=== PATIENT | female | born 1965 | race Caucasian/White ===

== ENCOUNTER 2019-01-05 05:05 | Observation (INO) | payer OTHER, SELFPAY ==
[2019-01-05] VITALS (11 sets, daily range): BP systolic 148–214; BP diastolic 73–92; PULSE 65–90; RESP 15–28; TEMP 36.6–37; O2SAT 95–99; BMI 45.6; BMI 48.6
--- NOTE | 2019-01-05 05:06 | ED.RN ---
CALLED FOR EKG PER RN REQUEST, NO OLD EKGS IN MUSE
--- NOTE | 2019-01-05 05:08 | RAD_ITS ---
STUDY: X-RAY CHEST REASON FOR EXAM: Female, 53 years old. Shortness of breath. TECHNIQUE: Single AP portable view of the chest. COMPARISON: Prior comparison studies are not available for review at this time. FINDINGS: Cardiac monitoring leads are present. The lungs are expanded. There is mild prominence of the bronchovascular markings. There is no demonstrated pleural abnormality. There is mild cardiac enlargement. Normal mediastinum and emmett. There is prominence of the pulmonary hilar arteries with peripheral pulmonary vascular congestion. There is atherosclerotic calcification of the aortic arch with tortuosity. There is demineralization of the osseous structures. Normal visualized ribs, clavicles, and shoulders. There is no demonstrated abnormality of the visualized soft tissue structures of the upper abdomen. RAD/Chest 1 View (Portable) IMPRESSION: Mild cardiomegaly and pulmonary congestion. Electronically Signed: Lucia Cameron MD at 6:15 EDT , Service support ,
--- NOTE | 2019-01-05 05:09 | EKG12_ITS ---
Test Reason : CP Blood Pressure : / mmHG Vent. Rate : 089 BPM Atrial Rate : 089 BPM P-R Int : 180 ms QRS Dur : 082 ms QT Int : 382 ms P-R-T Axes : 012 000 080 degrees QTc Int : 464 ms Normal sinus rhythm Normal ECG Confirmed by SANIYA GIPSON, DUANE ([id number]), website/blog editor KULWINDER BOSCH ([id number]) on 01/07/2019 11:06:23 AM Referred By: Ramon Eldridge Confirmed By:DUANE KOTHARI MD
[2019-01-05] MEDS: Ipratropium/Albuterol Sulfate 3 ML AMPUL.NEB INHALATION (05:16)
[2019-01-05] MEDS: 0.9% Normal Saline 1,000 ML 15 ML IV (05:26)
[2019-01-05] MEDS: Ondansetron 4 MG/2 ML Vial IV (05:26)
[2019-01-05 05:38] LABS: Absolute Lymphocyte Count 0.61 X10^3/ul (0.83-4.51); Absolute Neutrophil Count 4.2 X10^3/uL (2.0-7.7); Eosinophils% 1.8 % (0-5); Hematocrit 44.2 % (37-47); Hemoglobin 15.3 g/dl (12.0-15.0); Lymphocyte # 0.61 X10^3/ul (4.0); Mean Corp Hgb Conc 34.6 g/gl (32-36); Mean Corpuscular Hgb 30.1 pg (27.0-32.0); Mean Corpuscular Volume 86.8 fL (81-99); Mean Platelet Vol. 9.4 fl (6.2-12.0); Monocyte# 0.59 X10^3/uL; Monocyte% 10.6 % (0-10); Neutrophil # 4.23 X10^3/uL (2.7-7.7); Neutrophil % 76.2 % (47-70); Platelet Count 225 K/mm3 (150-450); RBC Distribution Width CV 12.2 % (11.6-14.6); RBC Distribution Width SD 38.9 fl (35.1-43.9); Red Blood Count 5.09 M/mm3 (4.2-5.4); White Blood Count 5.6 K/mm3 (4.4-11.0)
[2019-01-05 05:46] LABS: POSITIVE COUNT NO; POSITIVE DIFFERENTIAL NO; POSITIVE MORPHOLOGY NO
[2019-01-05 06:15] LABS: Anion Gap 11 (5-15); BUN 11 mg/dL (7-18); BUN/Creat Ratio 12.2 RATIO (10-20); Calcium,Total 8.8 mg/dL (8.5-10.1); Chloride 102 mmol/L (98-107); EST Glomerular Filtration Rate 69 mL/min (>60); Est Glom Filt Rate - Afr Amer 84 mL/min (>60); Estimated Creatinine Clearance 71.25 ml/min; Glucose 176 mg/dL (74-106); Potassium 3.8 mmol/L (3.5-5.1); Sodium Level 136 mmol/L (136-145)
[2019-01-05 08:05] LABS: BNP,B-Type NATRIURETIC PEPTIDE 16.7 pg/mL (0-100)
--- NOTE | 2019-01-05 08:20 | ED.VISSUMM ---
- ER Visit Summary Date of Service: 01/05/19 Chief Complaint: Short of breath, chest pain, vomiting History of Present Illness: The patient is a 53 F with cough, shortness of breath, and back pain for the past 2 weeks. She was seen by her PCP and treated with prednisone, doxycycline without improvement. Patient states her symptoms have continued and tonight she had vomiting. She reports a temperature of 101.7 just prior to arrival. She does report chest congestion but is not bringing up much sputum. She works at the [employer] home with multiple ill residents. Patient does have a history of asthma. Physical Examination: Blood pressure on arrival was 214/90, temperature 98.6, heart rate 88, respiratory rate 28, pulse ox 95% on room air. Patient is sitting upright in bed. She is able to speak full sentences but is tachypneic. Head neck examination is unremarkable. Heart is regular rate and rhythm. Lung sounds are diminished throughout. Abdomen is soft and nontender. Test Results: Portable chest x-ray reveals mild cardiomegaly and pulmonary congestion. EKG is sinus 89 with no acute ischemia. CBC was normal white count hemoglobin 15.3. Chemistry studies significant only for glucose of 176. Troponin is less than 0.015. BNP is 16.7. D-dimer 0.50. Emergency Department Course and Treatment: Patient was given a DuoNeb treatment along with Zofran. Patient did ablate to the bathroom next door to her room. Her O2 sats dropped to 89% without mild ambulation and she was quite tachypneic on return. I initially ordered a CTA of the chest, but patient was only able to get a 22-gauge IV in her arm and this would not give us good imaging results. At this time patient will require admission for further evaluation. If a larger IV can be obtained she may need a CTA chest or a nuclear medicine scan. Treatment Plan: [] Disposition: Admit Impression: Dyspnea This note was generated with [employer] dictation software. It may contain incorrect words, spelling, and punctuation that were not noted in review of the chart prior to signing ED Disposition - Plan for ED Patient: Referrals: Mauricio Fernandez DO [Primary Care Provider] -
--- NOTE | 2019-01-05 08:23 | ED.DCSUM_ITS ---
- ER Visit Summary Date of Service: 01/05/19 Chief Complaint: Short of breath, chest pain, vomiting History of Present Illness: The patient is a 53 F with cough, shortness of breath, and back pain for the past 2 weeks. She was seen by her PCP and treated with prednisone, doxycycline without improvement. Patient states her symptoms have continued and tonight she had vomiting. She reports a temperature of 101.7 just prior to arrival. She does report chest congestion but is not bringing up much sputum. She works at the [employer] home with multiple ill residents. Patient does have a history of asthma. Physical Examination: Blood pressure on arrival was 214/90, temperature 98.6, heart rate 88, respiratory rate 28, pulse ox 95% on room air. Patient is sitting upright in bed. She is able to speak full sentences but is tachypneic. Head neck examination is unremarkable. Heart is regular rate and rhythm. Lung sounds are diminished throughout. Abdomen is soft and nontender. Test Results: Portable chest x-ray reveals mild cardiomegaly and pulmonary congestion. EKG is sinus 89 with no acute ischemia. CBC was normal white count hemoglobin 15.3. Chemistry studies significant only for glucose of 176. Troponin is less than 0.015. BNP is 16.7. D-dimer 0.50. Emergency Department Course and Treatment: Patient was given a DuoNeb treatment along with Zofran. Patient did ablate to the bathroom next door to her room. Her O2 sats dropped to 89% without mild ambulation and she was quite tachypneic on return. I initially ordered a CTA of the chest, but patient was only able to get a 22-gauge IV in her arm and this would not give us good imaging results. At this time patient will require admission for further evaluation. If a larger IV can be obtained she may need a CTA chest or a nuclear medicine scan. Treatment Plan: [] Disposition: Admit Impression: Dyspnea This note was generated with [employer] dictation software. It may contain incorrect words, spelling, and punctuation that were not noted in review of the chart prior to signing ED Disposition - Plan for ED Patient: Referrals: Mauricio Fernandez DO [Primary Care Provider] -
--- NOTE | 2019-01-05 09:57 | HP.PCM_ITS ---
Problem List (1) Type II diabetes mellitus Status: Chronic (2) Morbid obesity with BMI of 45.0-49.9, adult Status: Chronic (3) HTN (hypertension) Status: Chronic Qualifiers: Hypertension type: essential hypertension Qualified Code(s): I10 - Essential (primary) hypertension (4) Asthma Status: Chronic (5) Breast CA Status: Chronic Qualifiers: Patient sex: female Laterality: right Comment: Status post partial mastectomy on the right and chemotherapy (6) History of partial mastectomy of right breast Status: Chronic (7) Elevated d-dimer Status: Acute (8) Nausea and vomiting Status: Acute (9) Cough Status: Acute Comment: for 21 weeks - no better after Prednisone and Doxycycline (10) Chest pain Status: Acute History of Present Illness Date of Admission: 01/05/19 Chief Complaint: N/V x 24 hours and cough with SOB for the past 2 weeks The patient is a 53 year old F with a past medical history of hypertension, depression, asthma and diabetes mellitus type 2 who presented to the emergency department at [facility] on 01/05/2019 complaining of cough with shortness of breath times 2 weeks and nausea/vomiting times 24 hours. She had been seen by her primary care physician for the cough and was placed on prednisone and doxycycline with no improvement. She reported a fever of 101.7 at home prior to arrival in the emergency department. She works at the [employer] home and multiple residents are ill. No signs of presentation to the emergency room were temp 98.6, pulse rate 88, blood pressure 214/90, respiratory rate 28 and she was 95% saturated on room air. White blood cell count was normal at 5.6 with 76% neutrophils. Hemoglobin was 15.3 and platelets were within normal limits. D-dimer was elevated at 0.5. BMP was unremarkable. Random glucose was elevated at 176 and the troponin was less than 0.015. Chest x-ray showed increased pulmonary vascular congestion but the BNP was 16.7. She was observed ambulating to the bathroom by Dr. Zamora and her pulse ox dropped to 88% and she became markedly tachypneic. There is a + FH of VTE in her mother who has an inherited disorder but, Timoteo can not remember what the abnormality is. She is being admitted to a monitored bed on [facility] 2 with a diagnosis of shortness of breath and chest pain of unknown etiology. Past Medical History Past Medical History (Chronic Problems): Chronic Problems Type II diabetes mellitus (Chronic) Morbid obesity with BMI of 45.0-49.9, adult (Chronic) HTN (hypertension) (Chronic) Asthma (Chronic) Breast CA (Chronic) Status post partial mastectomy on the right and chemotherapy History of partial mastectomy of right breast (Chronic) Allergies Sulfa (Sulfonamide Antibiotics) Allergy (Verified 01/05/19 05:09) Anaphylaxis morphine Adverse Reaction (Verified 01/05/19 05:09) Shortness of breath Home Medications: Ambulatory Orders Medication Instructions Recorded Amlodipine [Norvasc] 5 mg PO DAILY 01/05/19 Atenolol [Tenormin (beta shaylee)] 100 mg PO DAILY 01/05/19 Fluoxetine HCl [Prozac] 60 mg PO DAILY 01/05/19 Sitagliptin Phosphate [Januvia] 100 mg PO DAILY 01/05/19 Surgical History: mastectomy - Partial right mastectomy for breast cancer. Transabdominal hysterectomy with oophorectomy x1, the other ovary was left. This was done for dysfunctional uterine bleeding. C sections. 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 The patient tells me that she has an inherited disorder but she does not know the name. The mother also has hypertension Paternal History Items: - - Father with a brain tumor Sibling History Items: - - Her brother has hypertension and her sister has diabetes mellitus. Review of Systems Constitutional: Reports: Chills, Fever, Malaise. Denies: Weight Change Eyes: Denies: Blurred vision HEENT: Reports: Difficulty Hearing, Difficulty Swallowing. Denies: Head Aches, Sinus Congestion, Sinus Drainage, Sore Throat Cardiovascular: Reports: Chest Pain - she has chest pain in the right lateral chest that increases with taking a deep breath, Edema - resolves when she elevates her legs. Denies: Heaviness, Light Headedness, Orthopnea, Palpitations, Paroxysmal Noc. Dyspnea, Syncope Respiratory: Reports: Cough - non-productive mostly for the past 2 weeks, Pleuritic Pain, Shortness of breath at rest, Shortness of breath upon exertion, Wheezing. Denies: Hemoptysis, Sputum production Gastrointestinal: Reports: Nausea, Vomiting. Denies: Abdominal Pain Genitourinary: Reports: Frequency, Urgency. Denies: Dysuria Musculoskeletal: Denies: Joint Pain, Joint Tenderness Skin: Denies: Jaundice, Rash, Wounds Neurological: Denies: Balance problems, Focal weakness, Numbness, Tingling, Seizures Psychiatric: Denies: Anxiety, Depression, Homicidal Ideations, Suicidal Ideations Endocrine: Denies: Hx of Thyroiditis Hematologic/ Lymphatic: Denies: Easy Bruising, Easy Bleeding, Hx of blood clot VTE Information - Inpt Only VTE Present on Admission: No VTE Mechan Device Prophylaxis: SCD's, Knee High IRINA Hose VTE Pharm Prophylaxis ordered?: Yes VTE Suspected: Suspected PE - on the right and also suspect possible DVT RLE Patient Problems: Active and Suspected Problems Elevated d-dimer (Acute) Nausea and vomiting (Acute) Cough (Acute) for 21 weeks - no better after Prednisone and Doxycycline Chest pain (Acute) - Physical Exam General: Alert, Oriented x3, Cooperative, Well developed, Well nourished HEENT: Atraumatic, PERRLA, EOMI, Normocephalic Oral: No Gingival or Mucosal Lesions/ Ulcerations, Dry Mucosa Neck: Supple, No JVD, Negative Carotid Bruits, No Nodes, No Nuchal Rigidity, Trachea Midline, - - Crowded to have brisk upstroke and excellent pulse volume bilaterally Lungs: Clear to auscultation, Normal air movement, No rhonchi, No wheeze, No rales, Tachypneic, - - She is tachypneic even at rest. no accessory muscle use while resting in bed did Cardiovascular: Regular rate, Regular Rhythm, Normal S1, Normal S2, No murmurs, No Ectopic Activity, No rub noted, No Gallop Abdomen: Bowel Sounds Present, Soft, Non Tender, Non-Distended, Obese Extremities: No clubbing, No cyanosis, No edema, Capillary Refill Less than 3 Seconds, - - She has calf tenderness on the right. There are multiple superficial varicosities of the lower extremities. Skin: No rashes, No breakdown Musculoskeletal: No Tenderness to Palpation of Joints or Extremities Neurological: Cranial nerves II-XII grossly intact, Neuro grossly intact Psych/Mental Status: Normal Affect, Appropriate Vital Signs Temp Pulse Resp BP Pulse Ox 98.3 F 82 20 H 156/79 H 98 01/05/19 09:29 01/05/19 09:29 01/05/19 09:29 01/05/19 09:29 01/05/19 09:29 Oxygen Delivery Method Room Air Weight: 300 lb Body Mass Index (BMI) 45.6 Laboratory Tests Past 24 Hrs 01/05/19 01/05/19 01/05/19 05:20 05:20 05:20 WBC 5.6 RBC 5.09 Hgb 15.3 H Hct 44.2 MCV 86.8 MCH 30.1 MCHC 34.6 RDW 12.2 RDW Differential 38.9 Plt Count 225 MPV 9.4 Immature Gran % (Auto) 0.400 Neut % (Auto) 76.2 H Lymph % (Auto) 11.0 L [place] % (Auto) 10.6 H Eos % (Auto) 1.8 Baso % (Auto) 0.0 Absolute Neuts (auto) 4.2 Absolute Lymphs (auto) 0.61 L Total Counted Not Reportable D-Dimer Quant (PE/DVT) 0.50 H Sodium 136 Potassium 3.8 Chloride 102 Carbon Dioxide 23.0 Anion Gap 11 BUN 11 Creatinine 0.90 Estim Creat Clear Calc 71.25 Est GFR (MDRD) Af Amer 84 Est GFR (MDRD) Non-Af 69 BUN/Creatinine Ratio 12.2 Glucose 176 H Calcium 8.8 Troponin I < 0.015 B-Natriuretic Peptide 01/05/19 05:20 WBC RBC Hgb Hct MCV MCH MCHC RDW RDW Differential Plt Count MPV Immature Gran % (Auto) Neut % (Auto) Lymph % (Auto) [place] % (Auto) Eos % (Auto) Baso % (Auto) Absolute Neuts (auto) Absolute Lymphs (auto) Total Counted D-Dimer Quant (PE/DVT) Sodium Potassium Chloride Carbon Dioxide Anion Gap BUN Creatinine Estim Creat Clear Calc Est GFR (MDRD) Af Amer Est GFR (MDRD) Non-Af BUN/Creatinine Ratio Glucose Calcium Troponin I B-Natriuretic Peptide 16.7 Assessment/Plan All Active Problems Elevated d-dimer (Acute) Nausea and vomiting (Acute) Cough (Acute) Chest pain (Acute) Impressions 1. right side CP associated with shortness of breath and right calf pain in a patient with super morbid obesity who has a family history of possible hypercoagulable disorder. D-dimer was elevated in the emergency room and she has been ill and mostly laid up in bed for the past 2 weeks. Will need to do a CTA. 2. SOB with no infiltrates on the CXR but looks as though she has increased pulmonary vascular congestion. I suspect she may have pulmonary HTN and possible VEENA 3. Nausea/vomiting 4. Diabetes mellitus type 2 5. Hypertension-not controlled 6. History of breast cancer with partial right mastectomy and chemotherapy 7. Superobesity 8. History of asthma Telemetry Draw a hypercoagulable workup and then give 1 dose of Lovenox 1 mg/kg subcu and obtain a CTA of the chest Bilateral lower extremity ultrasounds Clear liquid diet Respiratory panel PRN aerosols Hydralazine as needed for elevated blood pressures K liver panel, magnesium and phosphorus HGBA1c anti-emetics accuchecks AC and HS with SSI Restart the home meds TEDS and SCD'd ECHO for HTN and CP and to evaluate for R heart strain Code Visit OBSV E&M: [id number] Initial observation care L3
--- NOTE | 2019-01-05 10:36 | VDLE_ITS ---
Reason For Study: Elevated D-Dimer RIGHT LEFT GSV is normal. GSV is normal. CFV is compressible, spontaneous, phasic, CFV is compressible, spontaneous, phasic, competent and demonstrates normal competent, and demonstrates normal augmentation. augmentation. FV is compressible, spontaneous, phasic, FV is compressible, spontaneous, phasic, competent and demonstrates normal competent and demonstrates normal augmentation. augmentation. POP V is compressible, spontaneous, phasic, POP V is compressible, spontaneous, phasic, competent and demonstrates normal competent and demonstrates normal augmentation. augmentation. T/P Trunk is compressible. T/P Trunk is compressible. PTV is compressible. PTV is compressible. RT PerV is compressible. LT PerV is compressible. Procedure Exam performed portable in patient room. A preliminary report was called and/or faxed to [facility]. Interpretation Summary Deep veins of the lower extremities are bilaterally patent and compressible segmentally. There is no evidence of deep vein thrombosis on either side. Valvular competence appears intact within the proximal deep venous systems bilaterally. The greater saphenous veins appear bilaterally patent and compressible segmentally. Ordering Physician: Bhavani Eldridge Referring Physician: Mauricio Dunn Performed By: Shayla Herrmann RVT
--- NOTE | 2019-01-05 10:36 | CT_ITS ---
STUDY: CTA CHEST REASON FOR EXAM: Female, 53 years old. Chest pain. Shortness of breath and cough. RADIATION DOSAGE (If Supplied By Facility): CTDIvol = ( 19.74 ) mGy, DLP = ( 778.08 ) mGycm TECHNIQUE: The examination was performed with the intravenous administration of Isovue 370 100CC IV. Post-processing of the angiographic images was performed, with multiplanar reformation and 3D reconstruction. Individualized dose optimization techniques were used for this CT. COMPARISON: Comparison is made with prior chest radiograph done earlier in the day. FINDINGS: Small bilateral axillary lymph nodes. Normal enhancement of the main pulmonary artery and right and left pulmonary arteries. Normal enhancement of the bilateral peripheral pulmonary arteries. There is no demonstrated pulmonary embolism. There is atherosclerotic calcification of the aortic arch with tortuosity. There is no demonstrated aortic dissection. Normal heart and pericardium. Normal mediastinum. Normal hilar regions. Normal visualized trachea and bronchi. The lungs are well expanded. Normal pulmonary parenchyma. Normal pleura. Normal chest wall structures. Normal osseous structures. Normal visualized upper abdomen. CT/CTA Chest W/WO Contrast IMPRESSION: No acute abnormality is seen. Electronically Signed: López Alston, at 12:59 EDT , Service support ,
--- NOTE | 2019-01-05 10:36 | ECHOD_ITS ---
Reason For Study: chest pain Procedure This was a 2D Doppler, Color Flow transthoracic echocardiogram. The study was technically difficult. Due to obesity. Exam performed portable in patient room. Left Ventricle Normal size and thickness. The estimated ejection fraction is 65 %. Stage 1 diastolic dysfunction. No regional wall motion abnormalities noted. Right Ventricle Normal size and thickness. Normal systolic function. Atria Normal left atrium. Normal right atrium. Normal atrial septum. Mitral Valve The mitral valve is structurally normal. No prolapse or stenosis seen. Tricuspid Valve Normal tricuspid valve. Trivial tricuspid valve insufficiency. Right ventricular systolic pressure estimated to be 23 mmHg. Aortic Valve Trisinus/trileaflet aortic valve. Normal aortic valve. Pulmonic Valve The pulmonic valve is not well visualized. Great Vessels Normal aortic root. Normal arch. Normal inferior vena cava. Inferior vena cava collapse with sniff. Pericardium/Pleural No pericardial effusion. MMode/2D Measurements & Calculations LVIDd: 4.4 cm IVSd: 1.1 cm Ao root diam: 3.2 cm LVIDs: 2.7 cm LVPWd: 1.1 cm RVDd: 3.6 cm FS: 37.8 % LAV(MOD-bp): 89.9 ml LA A4 area: 27.1 cm2 LA dimension(2D): 4.7 cm LAV(MOD-bp) Indexed: 36.1 ml/m2 LAV(MOD-sp2): 84.1 ml LAV(MOD-sp4): 85.1 ml Doppler Measurements & Calculations MV E max gee: 90.9 cm/sec Ao V2 max: 164.0 cm/sec LV V1 max: 136.3 cm/sec MV A max gee: 116.3 cm/sec Ao max P.8 mmHg LV V1 max P.4 mmHg MV E/A: 0.78 PA V2 max: 111.5 cm/sec TR max gee: 214.6 cm/sec TR max P.4 mmHg Interpretation Summary The estimated ejection fraction is 65 %. Stage 1 diastolic dysfunction. Trivial tricuspid valve insufficiency. Right ventricular systolic pressure estimated to be 23 mmHg. The study was technically difficult. There is no comparison study available. Ordering Physician: Bhavani Eldridge Referring Physician: Mauricio Dunn Performed By: Coleen Khan RDCS, RVT
--- NOTE | 2019-01-05 11:08 | NURSING ---
called [facility] in [place] and home med list updated. notified. LIOR Alberto called for IV restart for IV appropriate for CTA scan.
[2019-01-05 11:15] LABS: Bacteria 0 SEEN /hpf (None Seen); Mucous, Urine 0 SEEN /hpf (<or=2+); White Blood Cells 0 SEEN /hpf (0-5)
[2019-01-05 11:25] LABS: Color, Urine Yellow (Yellow); Glucose, Dipstick Normal (Normal); Ketone-Dipstick Negative (Negative); Leukocyte Esterase-Dipstick Negative /ul (Negative); Nitrite-Dipstick Negative (Negative); Occult Blood-Urine 10 /ul (Negative); Protein-Dipstick Negative (Negative); Urine Bilirubin Dipstick Negative (Negative); Urine Clarity Clear (Clear); Urine Urobilinogen Normal (Normal)
[2019-01-05 11:31] LABS: Red Blood Cells-Urine 0-5 SEEN /hpf (0-5); Squamous Epithelial Cells - UA 0-5 SEEN /hpf (5-10)
[2019-01-05] MEDS: Lactated Ringers 1,000 ML 125 ML IV ×2 (11:59→20:00)
[2019-01-05 12:05] LABS: Bedside Glucose 134 mg/dL (70-110)
[2019-01-05] MEDS: Enoxaparin 150 MG/ML Syringe SC (12:17)
[2019-01-05 12:55] LABS: Phosphorus 3.6 mg/dL (2.5-4.9)
[2019-01-05 12:57] LABS: AST(SGOT) 15 U/L (15-37); Alanine Aminotransfer ALT/SGPT 25 U/L (13-56); Albumin, Serum 3.5 g/dL (3.2-5.0); Alkaline Phosphatase 48 U/L (45-117); Bilirubin, Direct 0.19 mg/dL (0.00-0.30); Globulin 3.7 g/dL (2.2-4.2); Magnesium 2.1 mg/dL (1.6-2.6); Protein, Total 7.2 g/dL (6.4-8.2)
[2019-01-05 13:11] LABS: Hemoglobin A1c 6.6 % (4.2-6.3)
[2019-01-05 16:51] LABS: Bedside Glucose 141 mg/dL (70-110)
[2019-01-05] MEDS: Acetaminophen 500 MG Tablet PO (17:38)
[2019-01-05] MEDS: guaiFENesin 1,200 MG Tablet 1200 MG PO (22:21)
[2019-01-05] MEDS: amLODIPine 5 MG Tablet PO (22:36)
[2019-01-05 23:26] LABS: Bedside Glucose 114 mg/dL (70-110)
[2019-01-06 00:30] VITALS: PULSE 74
[2019-01-06 03:09] VITALS: BP 143/79; PULSE 81; RESP 18; TEMP 37.2; O2SAT 99
[2019-01-06] MEDS: Lactated Ringers 1,000 ML 125 ML IV (03:23)
[2019-01-06] MEDS: Acetaminophen 500 MG Tablet PO (03:24)
[2019-01-06 04:00] VITALS: PULSE 82
[2019-01-06 06:41] LABS: Bedside Glucose 124 mg/dL (70-110)
[2019-01-06 06:55] VITALS: PULSE 86; RESP 20; O2SAT 94
[2019-01-06] MEDS: Ipratropium/Albuterol Sulfate 3 ML AMPUL.NEB INHALATION (06:55)
[2019-01-06 07:38] VITALS: BP 150/77; PULSE 77; RESP 20; TEMP 37.7; O2SAT 93
--- NOTE | 2019-01-06 07:48 | CPS ---
Pt took 1/2 of aerosol then wanted it stopped, says the taste makes her want to puke.
[2019-01-06] MEDS: guaiFENesin 1,200 MG Tablet 1200 MG PO (09:38)
[2019-01-06] MEDS: LINAGLIPTIN 5 MG TABLET PO (09:38)
[2019-01-06] MEDS: FLUoxetine 20 MG Capsule 60 MG PO (09:39)
[2019-01-06] MEDS: Atenolol 100 MG Tablet PO (09:39)
[2019-01-06] MEDS: amLODIPine 5 MG Tablet PO (09:40)
[2019-01-06 10:16] VITALS: PULSE 85
--- NOTE | 2019-01-06 11:10 | DCINST_ITS ---
- Discharge Diagnoses Current Active Problems: Current Active and Chronic Problems Type II diabetes mellitus (Chronic) Morbid obesity with BMI of 45.0-49.9, adult (Chronic) HTN (hypertension) (Chronic) Asthma (Chronic) Breast CA (Chronic) Status post partial mastectomy on the right and chemotherapy History of partial mastectomy of right breast (Chronic) Elevated d-dimer (Acute) Nausea and vomiting (Acute) Cough (Acute) for 21 weeks - no better after Prednisone and Doxycycline Chest pain (Acute) You will use the following diet at home:: Other - Resume previous diet Your food should be the consistency of: Regular Your liquids should be the consistency of: Regular/Thin Discharge Activity: - - get plenty of rest and stay well hydrated. Return to work on:: 01/11/19 Call your doctor if you observe: Fever of 101 or Higher, Shortness of breath, Dizziness, Fainting spells, Swelling in the ankles, Chest pain Additional Instructions: 1. The diabetes is well controlled and your hemoglobin A1c is 6.6%. 2. The viral respiratory panel is negative. 3. The urine culture has no growth. 4. The CT scan of the chest was negative for pulmonary emboli. 5. The white blood cell count is negative and there is no evidence of pneumonia on the CT chest or chest x-ray. 6. I think you have a virus that we currently do not have a test for. Make sure to get plenty of rest, drink fluids and take Tylenol and/or Motrin for muscle aches and pains. 7. I have given you a prescription for promethazine, also called Phenergan, which is to help with nausea and vomiting if this recurs. Allergies/Adverse Reactions: Allergies Sulfa (Sulfonamide Antibiotics) Allergy (Verified 01/05/19 05:09) Anaphylaxis morphine Adverse Reaction (Verified 01/05/19 05:09) Shortness of breath Medications to take at Discharge ALPRAZolam [Xanax] 0.5 mg PO DAILY 01/05/19 Amlodipine [Norvasc] 5 mg PO DAILY 01/05/19 Atenolol [Tenormin (beta shaylee)] 100 mg PO DAILY 01/05/19 Benzonatate 100 mg PO TID PRN 01/05/19 Fluoxetine HCl [Prozac] 60 mg PO DAILY 01/05/19 Prednisone 10 mg PO DAILY 01/05/19 Sitagliptin Phosphate [Januvia] 100 mg PO DAILY 01/05/19 Guaifenesin [Mucinex] 1,200 mg PO BID #20 tablet 01/06/19 Promethazine HCl 12.5 mg PO Q4H PRN PRN #15 tablet 01/06/19 The following prescriptions were given: Promethazine HCl 12.5 mg PO Q4H PRN PRN #15 tablet PRN Reason: Nausea/Vomiting Guaifenesin [Mucinex] 1,200 mg PO BID #20 tablet Primary Care Physician: Mauricio Fernandez DO [Primary Care Provider] - Please follow up with your Primary Care Physician in: 5-7 days Test Results: Test results from this visit will be discussed in further detail at your follow- up appointment, if applicable. Proposed Discharge Date: 01/06/19
--- NOTE | 2019-01-06 11:11 | PCM.DC.SUM ---
Discharge Date and Diagnosis - Problem List Patient Problems: Active and Suspected Problems Acute viral syndrome (Acute) Elevated d-dimer (Acute) Nausea and vomiting (Acute) Cough (Acute) for 21 weeks - no better after Prednisone and Doxycycline Chest pain (Acute) Date of Admission: 01/05/19 Date of Discharge: 01/06/19 - Primary Discharge Diagnosis Active and Suspected Problems Acute viral syndrome (Acute) Elevated d-dimer (Acute) with a negative CTA of the chest Nausea and vomiting (Acute) - resolved Cough (Acute) for 2 weeks - no better after Prednisone and Doxycycline - no infiltrates on CT or CXR - likely viral bronchitis Chest pain (Acute) - Secondary Discharge Diagnosis Chronic Problems Type II diabetes mellitus (Chronic) well controlled with a hemoglobin A1c of 6.6 Morbid obesity with BMI of 45.0-49.9, adult (Chronic) HTN (hypertension) (Chronic) Asthma (Chronic) Breast CA (Chronic) Status post partial mastectomy on the right and chemotherapy History of partial mastectomy of right breast (Chronic) Hospital Course and Treatment Imaging Results: Clinical Impression(s) from Imaging Studies Chest X-Ray 01/05/19 05:08 IMPRESSION: Mild cardiomegaly and pulmonary congestion. Electronically Signed: Lucia Cameron MD at 6:15 EDT , Service support , Chest CTA 01/05/19 10:36 IMPRESSION: No acute abnormality is seen. Electronically Signed: López Alston, at 12:59 EDT , Service support , Laboratory Results - last 24 hr 01/05/19 01/05/19 01/05/19 11:10 11:47 12:00 Hemoglobin A1c 6.6 H Phosphorus Magnesium Total Bilirubin Direct Bilirubin AST ALT Alkaline Phosphatase Total Protein Albumin Globulin Urine Color Yellow Urine Clarity Clear Urine pH 8.0 Ur Specific [place] 1.010 Urine Protein Negative Urine Glucose (UA) Normal Urine Ketones Negative Urine Occult Blood 10 H Urine Nitrite Negative Urine Bilirubin Negative Urine Urobilinogen Normal Ur Leukocyte Esterase Negative Urine RBC 0-5 SEEN Urine WBC 0 SEEN Ur Squamous Epith Cells 0-5 SEEN Urine Bacteria 0 SEEN Urine Mucus 0 SEEN POC Glucose 134 H 01/05/19 01/05/19 01/05/19 12:00 12:00 16:44 Hemoglobin A1c Phosphorus 3.6 Magnesium 2.1 Total Bilirubin 0.80 Direct Bilirubin 0.19 AST 15 ALT 25 Alkaline Phosphatase 48 Total Protein 7.2 Albumin 3.5 Globulin 3.7 Urine Color Urine Clarity Urine pH Ur Specific [place] Urine Protein Urine Glucose (UA) Urine Ketones Urine Occult Blood Urine Nitrite Urine Bilirubin Urine Urobilinogen Ur Leukocyte Esterase Urine RBC Urine WBC Ur Squamous Epith Cells Urine Bacteria Urine Mucus POC Glucose 141 H 01/05/19 01/06/19 22:26 06:31 Hemoglobin A1c Phosphorus Magnesium Total Bilirubin Direct Bilirubin AST ALT Alkaline Phosphatase Total Protein Albumin Globulin Urine Color Urine Clarity Urine pH Ur Specific [place] Urine Protein Urine Glucose (UA) Urine Ketones Urine Occult Blood Urine Nitrite Urine Bilirubin Urine Urobilinogen Ur Leukocyte Esterase Urine RBC Urine WBC Ur Squamous Epith Cells Urine Bacteria Urine Mucus POC Glucose 114 H 124 H Microbiology 01/05/19 12:25 Sputum, Expectorated/Coughed Gram Stain - Final 01/05/19 12:25 Sputum, Expectorated/Coughed Respiratory Culture - Preliminary 01/05/19 11:10 Urine, Catheterized Urine Culture - Preliminary Culture exhibits no growth. 01/05/19 12:50 Mucosa - Nasopharyngeal Respiratory Panel (PCR) - Final none Operations: None Procedures: None Summary of Care Provided: The patient is a 53 year old F with a past medical history of hypertension, depression, asthma, morbid obesity and diabetes mellitus type 2 who presented to the emergency department at [facility] on 01/05/2019 complaining of cough with shortness of breath for the preceding 2 weeks and associated with nausea/vomiting times 24 hours. She had been seen by her primary care physician for the cough and was placed on prednisone and doxycycline with no improvement. She reported a fever of 101.7 at home prior to arrival in the emergency department. She works at the [employer] home and multiple residents are ill. Vital signs of presentation to the emergency room were temp 98.6, pulse rate 88, blood pressure 214/90, respiratory rate 28 and she was 95% saturated on room air. White blood cell count was normal at 5.6 with 76% neutrophils. Hemoglobin was 15.3 and platelets were within normal limits. D-dimer was elevated at 0.5. BMP was unremarkable. Random glucose was elevated at 176 and the troponin was less than 0.015. Chest x-ray showed increased pulmonary vascular congestion but the BNP was 16.7. She was observed ambulating to the bathroom by Dr. Zamora and her pulse ox dropped to 88% and she became markedly tachypneic. There is a + FH of VTE in her mother who has an inherited disorder but, Timoteo can not remember what the abnormality is. She was admitted to a monitored bed on [facility] 2 with a diagnosis of shortness of breath and chest pain of unknown etiology. CTA of the chest was obtained and showed no evidence of pulmonary emboli, pleural effusions or infiltrates. Respiratory panel was negative. Preliminary on urine culture had no growth. Sputum Gram stain showed 2+ white blood cells with 1+ gram-positive cocci. She had a hypercoagulable panel drawn in the hospital but, the results are still pending at the time of DC. Tmax during her hospital admission was 99.8. Her diet was advanced as tolerated from clear liquids and on the date of discharge she ate a no gastric stimulus diet with no recurrence of nausea/vomiting/abdominal pain. He was discharged home and will follow up with Dr. Fernandez in the office in 5-7 days. She was given a work excuse to return to work on 01/11/2019. She was also given a prescription for promethazine 12.5 mg tablets and instructed to take 1 every 4 hours as needed for recurrent nausea. The final on the sputum culture is still pending at the time of discharge. PHYSICAL EXAM: GENERAL: alert, oriented X 3, Cooperative, NAD ORAL: moist mucosa, no mucosal lesions NECK: No JVD, supple, trachea midline LUNGS: CTA, symmetric chest expansion.....no longer tachypneic at DC HEART: RRR, Normal S1 and S2, no rub, no gallop ABDOMEN: soft, NT, ND, BS present, no guarding with palpation EXTREMITIES: no edema, no cyanosis, no calf tenderness SKIN: No rashes, no breakdown NEUROLOGIC: no focal neurologic deficits PSYCH: appropriate, normal affect, pleasant This note was generated with Blogication software. It may contain incorrect words, spelling, and punctuation that were not noted in checking the note before signing. Patient Problems: Active and Suspected Problems Acute viral syndrome (Acute) Elevated d-dimer (Acute) Nausea and vomiting (Acute) Cough (Acute) for 21 weeks - no better after Prednisone and Doxycycline Chest pain (Acute) - Physical Exam Vital Signs Temp Pulse Resp BP Pulse Ox 99.8 F H 85 20 H 150/77 H 93 01/06/19 07:38 01/06/19 10:16 01/06/19 07:38 01/06/19 07:38 01/06/19 07:38 Oxygen Delivery Method Room Air Weight: 319 lb 14.393 oz Body Mass Index (BMI) 48.6 Intake and Output for Last 24 Hours 01/04/19 01/05/19 01/06/19 23:59 23:59 23:59 Intake Total 1275 / 1275 2524 / 2524 Output Total 750 / 750 3850 / 3850 Balance 525 / 525 -1326 / -1326 Microbiology Past 72 Hours 01/05/19 12:25 Gram Stain - Final Sputum, Expectorated/Coughed Respiratory Culture - Preliminary 01/05/19 11:10 Urine Culture - Preliminary Urine, Catheterized Culture exhibits no growth. 01/05/19 12:50 Respiratory Panel (PCR) - Final Mucosa - Nasopharyngeal Laboratory Tests Past 24 Hrs 01/05/19 01/05/19 01/05/19 11:10 12:00 12:00 Protein C Antigen Pending Functional Protein C Pending Prot C Funct Activity Pending Antithrombin III Ag Pending Func Antithrombin III Pending Factor V Leiden Mutat Pending Hemoglobin A1c 6.6 H Phosphorus Magnesium Total Bilirubin Direct Bilirubin AST ALT Alkaline Phosphatase Total Protein Albumin Globulin Urine Color Yellow Urine Clarity Clear Urine pH 8.0 Ur Specific [place] 1.010 Urine Protein Negative Urine Glucose (UA) Normal Urine Ketones Negative Urine Occult Blood 10 H Urine Nitrite Negative Urine Bilirubin Negative Urine Urobilinogen Normal Ur Leukocyte Esterase Negative Urine RBC 0-5 SEEN Urine WBC 0 SEEN Ur Squamous Epith Cells 0-5 SEEN Urine Bacteria 0 SEEN Urine Mucus 0 SEEN Beta-2-GPI IgG Ab Pending Beta-2-GPI IgA Ab Pending Beta-2-GPI IgM Ab Pending Anti-Cardiolipin IgG Ab Pending Anti-Cardiolipin IgM Ab Pending Factor II DNA Analysis Pending Miscellaneous Test 01/05/19 01/05/19 01/05/19 12:00 12:00 12:00 Protein C Antigen Functional Protein C Prot C Funct Activity Antithrombin III Ag Func Antithrombin III Factor V Leiden Mutat Hemoglobin A1c Phosphorus 3.6 Magnesium 2.1 Total Bilirubin 0.80 Direct Bilirubin 0.19 AST 15 ALT 25 Alkaline Phosphatase 48 Total Protein 7.2 Albumin 3.5 Globulin 3.7 Urine Color Urine Clarity Urine pH Ur Specific [place] Urine Protein Urine Glucose (UA) Urine Ketones Urine Occult Blood Urine Nitrite Urine Bilirubin Urine Urobilinogen Ur Leukocyte Esterase Urine RBC Urine WBC Ur Squamous Epith Cells Urine Bacteria Urine Mucus Beta-2-GPI IgG Ab Beta-2-GPI IgA Ab Beta-2-GPI IgM Ab Anti-Cardiolipin IgG Ab Anti-Cardiolipin IgM Ab Factor II DNA Analysis Miscellaneous Test Pending POC Glucose 01/06/19 01/05/19 01/05/19 06:31 22:26 16:44 POC Glucose 124 H 114 H 141 H 01/05/19 11:47 POC Glucose 134 H Discharge Activity: - - get plenty of rest and stay well hydrated. Return to work on:: 01/11/19 Call your doctor if you observe: Fever of 101 or Higher, Shortness of breath, Dizziness, Fainting spells, Swelling in the ankles, Chest pain Home Medications: Medications to take at Discharge ALPRAZolam [Xanax] 0.5 mg PO DAILY 01/05/19 Amlodipine [Norvasc] 5 mg PO DAILY 01/05/19 Atenolol [Tenormin (beta shaylee)] 100 mg PO DAILY 01/05/19 Benzonatate 100 mg PO TID PRN 01/05/19 Fluoxetine HCl [Prozac] 60 mg PO DAILY 01/05/19 Prednisone 10 mg PO DAILY 01/05/19 Sitagliptin Phosphate [Januvia] 100 mg PO DAILY 01/05/19 Guaifenesin [Mucinex] 1,200 mg PO BID #20 tablet 01/06/19 Promethazine HCl 12.5 mg PO Q4H PRN PRN #15 tablet 01/06/19 Following Prescrptions Were Given to Patient: Promethazine HCl 12.5 mg PO Q4H PRN PRN #15 tablet PRN Reason: Nausea/Vomiting Guaifenesin [Mucinex] 1,200 mg PO BID #20 tablet Primary Care Physician: Mauricio Fernandez DO [Primary Care Provider] - Please follow up with your Primary Care Physician in: 5-7 days Disposition: Home Minutes spent on discharge:: 30 Patient Condition:: Stable Medical Necessity - Tobacco Use Smoking Status: Never smoker Tobacco Use: Non-smoker Meaningful Use Info Meaningful Use Diagnoses (Choose all that apply): None applicable Code Visit OBSV E&M: 01161 Observation care discharge
--- NOTE | 2019-01-06 11:19 | DS.PCM_ITS ---
Discharge Date and Diagnosis - Problem List Patient Problems: Active and Suspected Problems Acute viral syndrome (Acute) Elevated d-dimer (Acute) Nausea and vomiting (Acute) Cough (Acute) for 21 weeks - no better after Prednisone and Doxycycline Chest pain (Acute) Date of Admission: 01/05/19 Date of Discharge: 01/06/19 - Primary Discharge Diagnosis Active and Suspected Problems Acute viral syndrome (Acute) Elevated d-dimer (Acute) with a negative CTA of the chest Nausea and vomiting (Acute) - resolved Cough (Acute) for 2 weeks - no better after Prednisone and Doxycycline - no infiltrates on CT or CXR - likely viral bronchitis Chest pain (Acute) - Secondary Discharge Diagnosis Chronic Problems Type II diabetes mellitus (Chronic) well controlled with a hemoglobin A1c of 6.6 Morbid obesity with BMI of 45.0-49.9, adult (Chronic) HTN (hypertension) (Chronic) Asthma (Chronic) Breast CA (Chronic) Status post partial mastectomy on the right and chemotherapy History of partial mastectomy of right breast (Chronic) Hospital Course and Treatment Imaging Results: Clinical Impression(s) from Imaging Studies Chest X-Ray 01/05/19 05:08 IMPRESSION: Mild cardiomegaly and pulmonary congestion. Electronically Signed: Lucia Cameron MD at 6:15 EDT , Service support , Chest CTA 01/05/19 10:36 IMPRESSION: No acute abnormality is seen. Electronically Signed: López Alston, at 12:59 EDT , Service support , Laboratory Results - last 24 hr 01/05/19 01/05/19 01/05/19 11:10 11:47 12:00 Hemoglobin A1c 6.6 H Phosphorus Magnesium Total Bilirubin Direct Bilirubin AST ALT Alkaline Phosphatase Total Protein Albumin Globulin Urine Color Yellow Urine Clarity Clear Urine pH 8.0 Ur Specific [place] 1.010 Urine Protein Negative Urine Glucose (UA) Normal Urine Ketones Negative Urine Occult Blood 10 H Urine Nitrite Negative Urine Bilirubin Negative Urine Urobilinogen Normal Ur Leukocyte Esterase Negative Urine RBC 0-5 SEEN Urine WBC 0 SEEN Ur Squamous Epith Cells 0-5 SEEN Urine Bacteria 0 SEEN Urine Mucus 0 SEEN POC Glucose 134 H 01/05/19 01/05/19 01/05/19 12:00 12:00 16:44 Hemoglobin A1c Phosphorus 3.6 Magnesium 2.1 Total Bilirubin 0.80 Direct Bilirubin 0.19 AST 15 ALT 25 Alkaline Phosphatase 48 Total Protein 7.2 Albumin 3.5 Globulin 3.7 Urine Color Urine Clarity Urine pH Ur Specific [place] Urine Protein Urine Glucose (UA) Urine Ketones Urine Occult Blood Urine Nitrite Urine Bilirubin Urine Urobilinogen Ur Leukocyte Esterase Urine RBC Urine WBC Ur Squamous Epith Cells Urine Bacteria Urine Mucus POC Glucose 141 H 01/05/19 01/06/19 22:26 06:31 Hemoglobin A1c Phosphorus Magnesium Total Bilirubin Direct Bilirubin AST ALT Alkaline Phosphatase Total Protein Albumin Globulin Urine Color Urine Clarity Urine pH Ur Specific [place] Urine Protein Urine Glucose (UA) Urine Ketones Urine Occult Blood Urine Nitrite Urine Bilirubin Urine Urobilinogen Ur Leukocyte Esterase Urine RBC Urine WBC Ur Squamous Epith Cells Urine Bacteria Urine Mucus POC Glucose 114 H 124 H Microbiology 01/05/19 12:25 Sputum, Expectorated/Coughed Gram Stain - Final 01/05/19 12:25 Sputum, Expectorated/Coughed Respiratory Culture - Preliminary 01/05/19 11:10 Urine, Catheterized Urine Culture - Preliminary Culture exhibits no growth. 01/05/19 12:50 Mucosa - Nasopharyngeal Respiratory Panel (PCR) - Final none Operations: None Procedures: None Summary of Care Provided: The patient is a 53 year old F with a past medical history of hypertension, depression, asthma, morbid obesity and diabetes mellitus type 2 who presented to the emergency department at [facility] on 01/05/2019 complaining of cough with shortness of breath for the preceding 2 weeks and associated with nausea/vomiting times 24 hours. She had been seen by her primary care physician for the cough and was placed on prednisone and doxycycline with no improvement. She reported a fever of 101.7 at home prior to arrival in the emergency department. She works at the [employer] home and multiple residents are ill. Vital signs of presentation to the emergency room were temp 98.6, pulse rate 88, blood pressure 214/90, respiratory rate 28 and she was 95% saturated on room air. White blood cell count was normal at 5.6 with 76% neutrophils. Hemoglobin was 15.3 and platelets were within normal limits. D-dimer was elevated at 0.5. BMP was unremarkable. Random glucose was elevated at 176 and the troponin was less than 0.015. Chest x-ray showed increased pulmonary vascular congestion but the BNP was 16.7. She was observed ambulating to the bathroom by Dr. Zamora and her pulse ox dropped to 88% and she became markedly tachypneic. There is a + FH of VTE in her mother who has an inherited disorder but, Timoteo can not remember what the abnormality is. She was admitted to a monitored bed on [facility] 2 with a diagnosis of shortness of breath and chest pain of unknown etiology. CTA of the chest was obtained and showed no evidence of pulmonary emboli, pleural effusions or infiltrates. Respiratory panel was negative. Preliminary on urine culture had no growth. Sputum Gram stain showed 2+ white blood cells with 1+ gram- positive cocci. She had a hypercoagulable panel drawn in the hospital but, the results are still pending at the time of DC. Tmax during her hospital admission was 99.8. Her diet was advanced as tolerated from clear liquids and on the date of discharge she ate a no gastric stimulus diet with no recurrence of nausea/vomiting/abdominal pain. He was discharged home and will follow up with Dr. Fernandez in the office in 5-7 days. She was given a work excuse to return to work on 01/11/2019. She was also given a prescription for promethazine 12.5 mg tablets and instructed to take 1 every 4 hours as needed for recurrent nausea. The final on the sputum culture is still pending at the time of discharge. PHYSICAL EXAM: GENERAL: alert, oriented X 3, Cooperative, NAD ORAL: moist mucosa, no mucosal lesions NECK: No JVD, supple, trachea midline LUNGS: CTA, symmetric chest expansion.....no longer tachypneic at DC HEART: RRR, Normal S1 and S2, no rub, no gallop ABDOMEN: soft, NT, ND, BS present, no guarding with palpation EXTREMITIES: no edema, no cyanosis, no calf tenderness SKIN: No rashes, no breakdown NEUROLOGIC: no focal neurologic deficits PSYCH: appropriate, normal affect, pleasant This note was generated with VideoAvatarsation software. It may contain incorrect words, spelling, and punctuation that were not noted in checking the note before signing. Patient Problems: Active and Suspected Problems Acute viral syndrome (Acute) Elevated d-dimer (Acute) Nausea and vomiting (Acute) Cough (Acute) for 21 weeks - no better after Prednisone and Doxycycline Chest pain (Acute) - Physical Exam Vital Signs Temp Pulse Resp BP Pulse Ox 99.8 F H 85 20 H 150/77 H 93 01/06/19 07:38 01/06/19 10:16 01/06/19 07:38 01/06/19 07:38 01/06/19 07:38 Oxygen Delivery Method Room Air Weight: 319 lb 14.393 oz Body Mass Index (BMI) 48.6 Intake and Output for Last 24 Hours 01/04/19 01/05/19 01/06/19 23:59 23:59 23:59 Intake Total 1275 / 1275 2524 / 2524 Output Total 750 / 750 3850 / 3850 Balance 525 / 525 -1326 / -1326 Microbiology Past 72 Hours 01/05/19 12:25 Gram Stain - Final Sputum, Expectorated/Coughed Respiratory Culture - Preliminary 01/05/19 11:10 Urine Culture - Preliminary Urine, Catheterized Culture exhibits no growth. 01/05/19 12:50 Respiratory Panel (PCR) - Final Mucosa - Nasopharyngeal Laboratory Tests Past 24 Hrs 01/05/19 01/05/19 01/05/19 11:10 12:00 12:00 Protein C Antigen Pending Functional Protein C Pending Prot C Funct Activity Pending Antithrombin III Ag Pending Func Antithrombin III Pending Factor V Leiden Mutat Pending Hemoglobin A1c 6.6 H Phosphorus Magnesium Total Bilirubin Direct Bilirubin AST ALT Alkaline Phosphatase Total Protein Albumin Globulin Urine Color Yellow Urine Clarity Clear Urine pH 8.0 Ur Specific [place] 1.010 Urine Protein Negative Urine Glucose (UA) Normal Urine Ketones Negative Urine Occult Blood 10 H Urine Nitrite Negative Urine Bilirubin Negative Urine Urobilinogen Normal Ur Leukocyte Esterase Negative Urine RBC 0-5 SEEN Urine WBC 0 SEEN Ur Squamous Epith Cells 0-5 SEEN Urine Bacteria 0 SEEN Urine Mucus 0 SEEN Beta-2-GPI IgG Ab Pending Beta-2-GPI IgA Ab Pending Beta-2-GPI IgM Ab Pending Anti-Cardiolipin IgG Ab Pending Anti-Cardiolipin IgM Ab Pending Factor II DNA Analysis Pending Miscellaneous Test 01/05/19 01/05/19 01/05/19 12:00 12:00 12:00 Protein C Antigen Functional Protein C Prot C Funct Activity Antithrombin III Ag Func Antithrombin III Factor V Leiden Mutat Hemoglobin A1c Phosphorus 3.6 Magnesium 2.1 Total Bilirubin 0.80 Direct Bilirubin 0.19 AST 15 ALT 25 Alkaline Phosphatase 48 Total Protein 7.2 Albumin 3.5 Globulin 3.7 Urine Color Urine Clarity Urine pH Ur Specific [place] Urine Protein Urine Glucose (UA) Urine Ketones Urine Occult Blood Urine Nitrite Urine Bilirubin Urine Urobilinogen Ur Leukocyte Esterase Urine RBC Urine WBC Ur Squamous Epith Cells Urine Bacteria Urine Mucus Beta-2-GPI IgG Ab Beta-2-GPI IgA Ab Beta-2-GPI IgM Ab Anti-Cardiolipin IgG Ab Anti-Cardiolipin IgM Ab Factor II DNA Analysis Miscellaneous Test Pending POC Glucose 01/06/19 01/05/19 01/05/19 06:31 22:26 16:44 POC Glucose 124 H 114 H 141 H 01/05/19 11:47 POC Glucose 134 H Discharge Activity: - - get plenty of rest and stay well hydrated. Return to work on:: 01/11/19 Call your doctor if you observe: Fever of 101 or Higher, Shortness of breath, Dizziness, Fainting spells, Swelling in the ankles, Chest pain Home Medications: Medications to take at Discharge ALPRAZolam [Xanax] 0.5 mg PO DAILY 01/05/19 Amlodipine [Norvasc] 5 mg PO DAILY 01/05/19 Atenolol [Tenormin (beta shaylee)] 100 mg PO DAILY 01/05/19 Benzonatate 100 mg PO TID PRN 01/05/19 Fluoxetine HCl [Prozac] 60 mg PO DAILY 01/05/19 Prednisone 10 mg PO DAILY 01/05/19 Sitagliptin Phosphate [Januvia] 100 mg PO DAILY 01/05/19 Guaifenesin [Mucinex] 1,200 mg PO BID #20 tablet 01/06/19 Promethazine HCl 12.5 mg PO Q4H PRN PRN #15 tablet 01/06/19 Following Prescrptions Were Given to Patient: Promethazine HCl 12.5 mg PO Q4H PRN PRN #15 tablet PRN Reason: Nausea/Vomiting Guaifenesin [Mucinex] 1,200 mg PO BID #20 tablet Primary Care Physician: Mauricio Fernandez DO [Primary Care Provider] - Please follow up with your Primary Care Physician in: 5-7 days Disposition: Home Minutes spent on discharge:: 30 Patient Condition:: Stable Medical Necessity - Tobacco Use Smoking Status: Never smoker Tobacco Use: Non-smoker Meaningful Use Info Meaningful Use Diagnoses (Choose all that apply): None applicable Code Visit OBSV E&M: 17180 Observation care discharge
[2019-01-11 14:32] LABS: Protein C Antigen 76 % (60-150); Protein C, Functional 92 % (73-180)
[2019-01-11 14:36] LABS: Anti-Cardiolipin Ab, IgG, Qn < 9 GPL U/mL (0-14); Anti-Cardiolipin Ab, IgM, Qn 12 MPL U/mL (0-12); Anti-Thrombin 3 AG, Immunol 77 % (72-124); Antithrombin 3 Function 96 % (75-135); Beta-2-Glycoprotein I IgA <9 (0-25); Beta-2-Glycoprotein I IgG <9 (0-20); Beta-2-Glycoprotein I IgM <9 (0-32)
== END 2019-01-06 12:30 | disposition home or self-care (01) ==
LOC: ED 05:26 → MS2 09:10
PROVIDERS: Admitting Provider Internal Medicine; Emergency Provider Emergency Medicine; Family Provider Student in an Organized Health Care Education/Training Program; PCP Student in an Organized Health Care Education/Training Program; Referring Provider Internal Medicine; Visit Provider Internal Medicine
DX: B34.9 Viral infection, unspecified (principal); R07.89 Other chest pain; R06.02 Shortness of breath; J45.909 Unspecified asthma, uncomplicated; E66.01 Morbid (severe) obesity due to excess calories; Z68.42 Body mass index [BMI] 45.0-49.9, adult; Z71.3 Dietary counseling and surveillance; I10 Essential (primary) hypertension; E11.9 Type 2 diabetes mellitus without complications; Z85.3 Personal history of malignant neoplasm of breast; Z23 Encounter for immunization; F32.9 Major depressive disorder, single episode, unspecified; Z79.899 Other long term (current) drug therapy; Z79.52 Long term (current) use of systemic steroids; R11.2 Nausea with vomiting, unspecified; F41.9 Anxiety disorder, unspecified
CPT/HCPCS: 71045; 71275; 80048; 80076; 81001; 81240; 81241; 82962; 83036; 83735; 83880; 84100; 84484; 85025; 85300; 85301; 85302; 85303; 85379; 86146; 86147; 87070; 87086; 87205; 87633; 93005; 93306; 93970; 94640; 96361; 96372; 96374; 97802; 99218; 99285; J7030; J7120; Q9967; 90686; A4216; G0378; J2405

== ENCOUNTER → 2021-01-01 08:23 | Outpatient (REF) | payer OTHER, SELFPAY ==
[2019-01-05 09:29] VITALS: BMI 48.6
[2021-01-01 11:16] LABS: Probe Check PASS; Specimen Processing Control PASS
== END ==
LOC: LABSPEC 08:23
PROVIDERS: PCP Student in an Organized Health Care Education/Training Program; Visit Provider Family Medicine
DX: Z20.828 Contact with and (suspected) exposure to other viral communicable diseases (principal)
CPT/HCPCS: 87635; U0002

== ENCOUNTER 2021-11-19 13:48 | Emergency (ER) | payer OTHER, SELFPAY ==
[2021-11-19 13:49] VITALS: BP 188/76; PULSE 73; RESP 22; TEMP 35.7; O2SAT 96; BMI 48.6
--- NOTE | 2021-11-19 14:41 | CT_ITS ---
STUDY: CTA CHEST REASON FOR EXAM: Female, 56 years old. covid 19 pulmonary embolism RADIATION DOSAGE (If Supplied By Facility): CTDIvol = ( 13.85 ) mGy, DLP = ( 588.14 ) mGycm TECHNIQUE: The examination was performed with the intravenous administration of IV 100mL Isovue-370. Post-processing of the angiographic images was performed, with multiplanar reformation and 3D reconstruction. Individualized dose optimization techniques were used for this CT. COMPARISON: 01/05/2019 FINDINGS: Normal enhancement of the main pulmonary artery and right and left pulmonary arteries. Normal enhancement of the bilateral peripheral pulmonary arteries. There is no demonstrated pulmonary embolism. Normal thoracic aorta and visualized great vessels. There is no demonstrated aortic dissection. Normal heart and pericardium. Normal mediastinum. Normal hilar regions. Normal visualized trachea and bronchi. The lungs are well expanded. Normal pulmonary parenchyma. Normal pleura. Normal chest wall structures. Normal osseous structures. Normal visualized upper abdomen. CT/CTA Chest W/WO Contrast IMPRESSION: Normal CTA chest examination, without a demonstrated pulmonary embolism or arterial dissection. Electronically Signed: Holger Atwood MD at 16:26 EST Tel , Service support ,
--- NOTE | 2021-11-19 14:42 | EKG12_ITS ---
Test Reason : CP Blood Pressure : / mmHG Vent. Rate : 073 BPM Atrial Rate : 073 BPM P-R Int : 182 ms QRS Dur : 086 ms QT Int : 406 ms P-R-T Axes : 029 014 069 degrees QTc Int : 447 ms Normal sinus rhythm Normal ECG Confirmed by LIBBY GIPSON, KAVITA ([id number]), primer expeditor and drier KULWINDER BOSCH ([id number]) on 11/21/2021 9:13:05 AM Referred By: Confirmed By:KAVITA SOUZA MD
[2021-11-19 15:01] LABS: Absolute Lymphocyte Count 1.83 X10^3/uL (0.83-4.51); Absolute Neutrophil Count 5.9 X10^3/uL (2.0-7.7); Basophil# 0.04 X10^3/uL; Basophil% 0.5 % (0-1); Eosinophil# 0.21 X10^3/uL; Eosinophils% 2.4 % (0-5); Hematocrit 41.9 % (37-47); Hemoglobin 14.8 g/dL (12.0-15.0); Lymphocyte # 1.83 X10^3/ul (0.83-4.51); Lymphocyte % 21.3 % (19-41); Mean Corp Hgb Conc 35.3 g/dL (32-36); Mean Corpuscular Volume 87.8 fL (81-99); Mean Platelet Vol. 9.1 fl (6.2-12.0); Monocyte# 0.58 X10^3/uL; Monocyte% 6.8 % (0-10); NRBC Flagged by Analyzer 0 % (0-5); Neutrophil % 68.7 % (47-70); Platelet Count 292 K/mm3 (150-450); RBC Distribution Width CV 11.5 % (11.6-14.6); RBC Distribution Width SD 37.2 fl (35.1-43.9); Red Blood Count 4.77 M/mm3 (4.2-5.4); White Blood Count 8.6 K/mm3 (4.4-11.0)
[2021-11-19 15:18] LABS: ALB/GLOB Ratio 0.8 RATIO (0.9-2.4); AST(SGOT) 9 U/L (15-37); Alanine Aminotransfer ALT/SGPT 28 U/L (13-56); Albumin, Serum 3.4 g/dL (3.2-5.0); Alkaline Phosphatase 53 U/L (45-117); Anion Gap 4 (5-15); BUN 9 mg/dL (7-18); Chloride 105 mmol/L (98-107); EST Glomerular Filtration Rate 69 mL/min (>60); Est Glom Filt Rate - Afr Amer 83 mL/min (>60); Estimated Creatinine Clearance 68.73 ml/min; Glucose 188 mg/dL (74-106); Potassium 3.8 mmol/L (3.5-5.1); Protein, Total 7.4 g/dL (6.4-8.2); Sodium Level 138 mmol/L (136-145); Troponin-I HS 5 pg/mL (3.0-54.0)
[2021-11-19] MEDS: Ketorolac 30 MG/ML Syringe IV (15:31)
[2021-11-19 15:41] VITALS: O2SAT 97
[2021-11-19 16:03] VITALS: O2SAT 97
--- NOTE | 2021-11-19 16:03 | EX.ED.DYSGE1 ---
HPI History of Present Illness Chief Complaint: Shortness of Breath Narrative Narrative: 56-year-old female states that she was Covid positive couple months ago. Then she tested positive again this month. She states that she has been experiencing chest pain or shortness of breath and today her pulse ox was down into the 70s when she did she went to her primary care doctors in the 80s they brought her to the emergency department. She states she was feeling amazingly better with oxygen and that she really needs some oxygen now. She is currently 96% on room air. Patient has a history of breast cancer, hypertension, diabetes and asthma history. [facility] Medical History Diabetes Hx of breast cancer Hypertension Home Medications alprazolam 0.5 mg PO DAILY 01/05/19 [History Last Taken Unknown] amlodipine 5 mg PO DAILY 01/05/19 [History Last Taken Unknown] atenolol 100 mg PO DAILY 01/05/19 [History Last Taken Unknown] benzonatate 100 mg PO TID PRN 01/05/19 [History Last Taken Unknown] fluoxetine [Prozac] 60 mg PO DAILY 01/05/19 [History Last Taken Unknown] prednisone 10 mg PO DAILY 01/05/19 [History Last Taken Unknown] sitagliptin [Januvia] 100 mg PO DAILY 01/05/19 [History Last Taken Unknown] guaifenesin [Mucus Relief ER] 1,200 mg PO BID #20 tablet 01/06/19 [Rx Last Taken Unknown] promethazine 12.5 mg PO Q4H PRN PRN #15 tab 01/06/19 [Rx Last Taken Unknown] Allergy/AdvReac Type Severity Reaction Status Date / Time Sulfa (Sulfonamide Allergy Anaphylaxis Verified 11/19/21 13:49 Antibiotics) morphine AdvReac Shortness Verified 11/19/21 13:49 of breath Social History Smoking Status: Never smoker ROS ROS ED Constitutional Constitutional ED: Denies chills or weight loss Eyes Eyes: Denies change in vision or diplopia ENT ENT ED: Denies ear pain, rhinorrhea or sore throat Cardiovascular Cardiovascular: Reports chest pain; Denies orthopnea, palpitations or racing heartbeat Respiratory/Chest Respiratory/Chest: Reports cough and dyspnea; Denies orthopnea Gastrointestinal Gastrointestinal: Denies abdominal pain, diarrhea, nausea or vomiting Genitourinary Genitourinary ED: Denies dysuria, hematuria or urinary frequency Musculoskeletal Musculoskeletal: Denies arthralgias or myalgias Integumentary Denies abscess or rash Neurologic Neurologic: Denies headache(s) or weakness Psychiatric Psychiatric: Denies anxiety, depression, suicidal ideation or suicidal thoughts Endocrine Endocrinology: Denies polydipsia, polyphagia or polyuria Allergic/Immunologic Allergic/Immunologic ED: Denies mouth swelling, tongue swelling or urticaria EXAM Physical Exam Const Vital Signs: 11/19/21 13:49 11/19/21 15:41 Temperature 96.3 F L Temperature Source Temporal Pulse Rate 73 Respiratory Rate 22 H Respiratory Effort Normal Non-Labored Respiratory Depth Normal Respiratory Pattern Normal Blood Pressure 188/76 H Blood Pressure Mean 113 Pulse Ox 96 Oxygen Delivery Method Room Air Room Air Positive well nourished, well developed and obese General Appearance ED: well developed Nutritional Appearance: obese HEENT Reports normocephalic, head/scalp atraumatic, TM's clear and moist mucous membranes Negative for trauma Tympanic Membrane ED: Yes TM's clear Eyes PERRL and EOMs intact bilaterally Neck no lymphadenopathy, supple and no JVD Resp normal respiratory effort and clear to auscultation bilaterally Cardio regular rate, regular rhythm and no murmurs GI normal to inspection, nondistended, normoactive bowel sounds and non-tender Palpation: soft Back/Spine no CVA tenderness and normal ROM Extremity normal to inspection General Extremety ED: Negative for edema General Extremity: Negative for edema Neuro oriented x3 and CN's II-XII intact bilaterally Sensorium / Orientation: alert Motor Exam: strength 5/5 throughout Psych mental status grossly normal Mood & Affect: Negative for depressed or tearful Skin no rashes or lesions noted and no wounds MDM MDM MDM Narrative Medical decision making narrative: Basic blood work was normal. She is not had any hypoxia here. We ambulated her and she did not become hypoxic even though the patient was feeling that she was in the 80s and her O2 sats. CTA of the chest was obtained which does not demonstrate any pulmonary embolism or pneumonia/pneumonitis. Think the patient is clinically stable and should do well. Lab Data Attestation: I reviewed the patient's lab results. Labs: Laboratory Results - last 24 hr 11/19/21 11/19/21 14:55 14:55 WBC 8.6 RBC 4.77 Hgb 14.8 Hct 41.9 MCV 87.8 MCH 31.0 MCHC 35.3 RDW Std Deviation 37.2 RDW Coeff of [place] 11.5 L Plt Count 292 MPV 9.1 Immature Gran % (Auto) 0.300 Neut % (Auto) 68.7 Lymph % (Auto) 21.3 [place] % (Auto) 6.8 Eos % (Auto) 2.4 Baso % (Auto) 0.5 Absolute Neuts (auto) 5.9 Absolute Lymphs (auto) 1.83 Nucleated RBC % 0 Sodium 138 Potassium 3.8 Chloride 105 Carbon Dioxide 29.0 Anion Gap 4 L BUN 9 Creatinine 0.90 Estim Creat Clear Calc 68.73 Est GFR (MDRD) Af Amer 83 Est GFR (MDRD) Non-Af 69 BUN/Creatinine Ratio 10.0 Glucose 188 H Calcium 9.0 Total Bilirubin 0.50 AST 9 L ALT 28 Alkaline Phosphatase 53 Troponin I High Sens 5 Total Protein 7.4 Albumin 3.4 Globulin 4.0 Albumin/Globulin Ratio 0.8 L EKG Initial EKG: Attestation: I personally reviewed and interpreted this EKG as follows: Comments: normal sinus rhythm with a ventricular rate of 73 bpm Discharge Plan Triage Chief Complaint: Shortness of Breath ED Provider: Nikolas Cooper Dx/Rx/DC Orders Clinical Impression: COVID-19, Acute dyspnea Instructions: Coronavirus Disease 2019 (COVID-19): Caring for Yourself or Others Prescriptions: No Action amlodipine 5 MG tablet 5 mg PO DAILY RF: 0 fluoxetine [Prozac] 20 MG capsule 60 mg PO DAILY RF: 0 atenolol 50 MG tablet 100 mg PO DAILY RF: 0 sitagliptin [Januvia] 100 MG tablet 100 mg PO DAILY RF: 0 prednisone 10 MG tablet 10 mg PO DAILY RF: 0 alprazolam 0.5 MG tablet 0.5 mg PO DAILY RF: 0 benzonatate 100 MG capsule 100 mg PO TID PRN (Reason: Cough) RF: 0 guaifenesin [Mucus Relief ER] 1,200 MG tablet 1,200 mg PO BID Qty: 20 RF: 0 promethazine 12.5 MG tablet 12.5 mg PO Q4H PRN PRN (Reason: Nausea/Vomiting) Qty: 15 RF: 0 Primary Care Provider: Mauricio Fernandez Referrals: Mauricio Fernandez DO [Primary Care Provider] - As Needed Disposition Disposition: Home, Self Care
[2021-11-19 16:41] VITALS: PULSE 89; RESP 20; O2SAT 97
== END 2021-11-19 16:44 | disposition home or self-care (01) ==
PROVIDERS: Emergency Provider Emergency Medicine; PCP Student in an Organized Health Care Education/Training Program; Visit Provider Emergency Medicine
DX: U07.1 COVID-19 (principal); R06.00 Dyspnea, unspecified; E66.9 Obesity, unspecified; Z85.3 Personal history of malignant neoplasm of breast
CPT/HCPCS: 71275; 80053; 84484; 85025; 93005; 96374; 99282; Q9967; A4216

== ENCOUNTER → 2025-02-17 | Outpatient (CLI) | payer MEDICAID, SELFPAY ==
[2025-02-17 12:44] LABS: Absolute Neutrophil Count 4.9 X10^3/uL (2.0-7.7); Basophil# 0.05 X10^3/uL; Basophil% 0.7 % (0-1); Eosinophil# 0.17 X10^3/uL; Eosinophils% 2.4 % (0-5); Hematocrit 44.7 % (37-47); Hemoglobin 15.4 g/dL (12.0-15.0); Lymphocyte % 21.2 % (19-41); Mean Corp Hgb Conc 34.5 g/dL (32-36); Mean Corpuscular Volume 87.1 fL (81-99); Mean Platelet Vol. 9.7 fl (6.2-12.0); Monocyte# 0.47 X10^3/uL; Monocyte% 6.6 % (0-10); NRBC Flagged by Analyzer 0 % (0-5); Neutrophil # 4.87 X10^3/uL (2.7-7.7); Neutrophil % 68.8 % (47-70); Platelet Count 259 K/mm3 (150-450); RBC Distribution Width CV 11.6 % (11.6-14.6); RBC Distribution Width SD 37.1 fl (35.1-43.9); Red Blood Count 5.13 M/mm3 (4.2-5.4); White Blood Count 7.1 K/mm3 (4.4-11.0)
[2025-02-17 13:18] LABS: Microalbumin,Random Urine < 12.0 mg/L (NO RANGE EST.)
[2025-02-17 13:19] LABS: ALB/GLOB Ratio 2.1 RATIO (0.9-2.4); AST(SGOT) 16 U/L (<=31); Alanine Aminotransfer ALT/SGPT 17 U/L (<=34); Albumin, Serum 4.1 g/dL (3.4-4.8); Alkaline Phosphatase 49 U/L (35-104); Anion Gap 14 (5-15); BUN 14 mg/dL (4-19); BUN/Creat Ratio 17.2 RATIO (10-20); Calcium,Total 8.1 mg/dL (7.6-11.0); Carbon Dioxide 20.6 mmol/L (21.0-32.0); Chloride 101 mmol/L (98-108); Creatinine, Serum 0.81 mg/dL (0.70-1.20); EST Glomerular Filtration Rate 82 (>60); Glucose 241 mg/dL (70-99); Potassium 4.4 mmol/L (3.3-5.1); Sodium Level 135 mmol/L (133-145); Total Bilirubin 0.61 mg/dL (0.00-1.30)
[2025-02-17 13:41] LABS: Cholesterol 135 mg/dL (<=200); High Density Lipoprotein 36 mg/dL; Low Density Lipoprotein Calc. 86 mg/dL; Triglycerides 65 mg/dL; Very Low Density Lipoprotein 13 mg/dL (5-40); cholesterol:hdl ratio screen 3.75
== END | disposition home or self-care (01) ==
LOC: VSLAB 08:43
DX: I10 Essential (primary) hypertension (principal); E11.9 Type 2 diabetes mellitus without complications
CPT/HCPCS: 36415; 80053; 80061; 82043; 84443; 85025

== ENCOUNTER → 2025-03-31 | Outpatient (CLI) | payer MEDICAID, SELFPAY ==
[2025-03-31 13:10] LABS: Absolute Neutrophil Count 5.3 X10^3/uL (2.0-7.7); Basophil# 0.04 X10^3/uL; Basophil% 0.5 % (0-1); Eosinophil# 0.25 X10^3/uL; Eosinophils% 3.3 % (0-5); Hemoglobin 15.7 g/dL (12.0-15.0); Lymphocyte % 18.7 % (19-41); Mean Corp Hgb Conc 34.9 g/dL (32-36); Mean Corpuscular Hgb 30.3 pg (27.0-32.0); Mean Corpuscular Volume 86.9 fL (81-99); Mean Platelet Vol. 8.9 fl (6.2-12.0); Monocyte# 0.47 X10^3/uL; Monocyte% 6.3 % (0-10); NRBC Flagged by Analyzer 0 % (0-5); Neutrophil # 5.32 X10^3/uL (2.7-7.7); Neutrophil % 71.1 % (47-70); Platelet Count 311 K/mm3 (150-450); RBC Distribution Width CV 11.4 % (11.6-14.6); RBC Distribution Width SD 36.6 fl (35.1-43.9); Red Blood Count 5.18 M/mm3 (4.2-5.4); White Blood Count 7.5 K/mm3 (4.4-11.0)
[2025-03-31 13:35] LABS: Amylase 41 U/L (28-100); Lipase 27 U/L (13-75)
[2025-03-31 14:06] LABS: ALB/GLOB Ratio 1.3 RATIO (0.9-2.4); AST(SGOT) 18 U/L (<=31); Alanine Aminotransfer ALT/SGPT 17 U/L (<=34); Albumin, Serum 4.2 g/dL (3.4-4.8); Alkaline Phosphatase 53 U/L (35-104); Anion Gap 13 (5-15); BUN 9 mg/dL (4-19); BUN/Creat Ratio 11.1 RATIO (10-20); Calcium,Total 9.5 mg/dL (7.6-11.0); Carbon Dioxide 21.6 mmol/L (21.0-32.0); Chloride 103 mmol/L (98-108); Creatinine, Serum 0.84 mg/dL (0.70-1.20); EST Glomerular Filtration Rate 79 (>60); Globulin 3.2 g/dL (2.2-4.2); Glucose 186 mg/dL (70-99); Potassium 4.2 mmol/L (3.3-5.1); Protein, Total 7.4 g/dL (5.9-8.4); Sodium Level 137 mmol/L (133-145); Total Bilirubin 0.62 mg/dL (0.00-1.30)
== END | disposition home or self-care (01) ==
DX: R10.9 Unspecified abdominal pain (principal)
CPT/HCPCS: 36415; 80053; 82150; 83690; 85025